=== PATIENT | female | born 1945 | race Caucasian/White ===

== ENCOUNTER 2025-02-23 14:08 | Emergency (ER) | payer OTHER, SELFPAY ==
[2025-02-23] VITALS (8 sets, daily range): BP systolic 137–159; BP diastolic 69–89; BMI 30.3
[2025-02-23 14:30] LABS: Hematocrit 43.0 % (37.0-47.0); Hemoglobin 14.7 g/dL (12.0-16.0); Mean Corp Hgb Conc. 34.2 g/dL (33.0-37.0); Mean Corpuscular Volume 88.5 fL (81.0-99.0); Nucleated Red Blood Cells % 0 %; Platelet Count 250 10^3/uL (130-400); Red Cell Dist. Width 13.2 % (11.5-14.5)
[2025-02-23 15:00] LABS: Albumin 4.3 g/dl (3.5-5.0); Carbon Dioxide 27 mmol/L (22-30)
[2025-02-23 15:17] LABS: ALT (SGPT) 13 U/L (0-35); AST (SGOT) 23 U/L (14-36); Alkaline Phosphatase 59 U/L (38-126); Blood Urea Nitrogen 13 mg/dl (7-17); Calcium 9.2 mg/dl (8.4-10.2); Chloride 102 mmol/L (98-107); Glucose 134 mg/dl (70-99); Potassium 4.4 mmol/L (3.5-5.1); Sodium 135 mmol/L (135-145); Total Protein 7.2 g/dl (6.3-8.2); eGFR > 60.00
--- NOTE | 2025-02-23 16:20 | ED.GENMED ---
History of Present Illness
General
Chief Complaint: Headache
Source: patient
Exam Limitations: none
Time Seen by Provider: 02/23/25 16:04
History of Present Illness
History of Present Illness:
Patient started with a diffuse headache 3 days ago. 2 days ago started with disequilibrium. Started 2 days ago. Disequilibrium worse this morning and better now. Able to ambulate. No other neurologic symptoms.
Past History
Past History
ED Past Medical History: Hypercholesterolemia and Other (osteoporosis)
ED Past Surgical History: Appendectomy and Other (Neck tumor)
Social History
Living: with family
Review of Systems
Review of Systems
All Other Systems: Not applicable
Respiratory: Reports no symptoms
Cardiac: Reports no symptoms
Phy Exam
Physical Exam
Physical Exam:
GENERAL: Alert and oriented in no apparent distress
EYE: Orbits normal. No nystagmus
NECK: Supple, no carotid bruit
ENT: Pharynx without erythema
CARDIAC: Regular rate and rhythm without any obvious murmurs.
LUNGS: Clear breath sounds,normal
ABDOMEN: Soft, without focal tenderness or distention
NEUROLOGICAL: Alert and oriented , cranial nerves II through XII intact. Speech normal. [id number] normal. Cauk-tj-vkle normal. Gait appears well. Slightly hesitant but appears well. Negative Romberg.
SKIN: Warm and dry, no rash or lesion, no discoloration, skin intact.
MUSCULOSKELETAL: No edema,no deformity.Good color
PSYCH: Normal and appropriate interaction.
Course
Orders/Labs/Results
Orders:
Orders
02/23/25 14:16
Electrocardiogram (*1) Urgent
Reason for Study: Vertigo / Dizzy
EKG- Treatment ONCE
02/23/25 14:24
CMP [Comprehensive Metabolic Panel] Urgent
Complete Blood Count/With Diff Urgent
02/23/25 16:17
CT Head W/o Iv Contrast Urgent
Comment:
Reason For Exam: Disequilibrium/headache
MR Brain Without Contrast Urgent
Comment:
Reason For Exam: Disequilibrium/headache
Recent pill cam endoscopy?: No
Meclizine [Antivert] 12.5 mg PO NOW STA
02/23/25 16:54
Alprazolam [Xanax] 0.25 mg PO NOW STA
02/23/25 19:44
Alprazolam [Xanax] 0.25 mg .ROUTE .STK-MED ONE
Abnormal Lab Results
02/23/25
14:24
WBC 13.0 H 10^3/uL
(4.8-10.8)
MPV 11.4 H fL
(7.4-10.4)
Abs Immat Gran (auto) 0.1 H 10^3/uL
(0-0.05)
Absolute Neuts (auto) 9.9 H 10^3/uL
(1.4-6.5)
Neutrophils % 76.0 H %
(42.2-75.2)
Lymphocytes % 19.0 L %
(20.5-51.1)
Glucose 134 H mg/dl
(70-99)
02/23/25 14:24
02/23/25 14:24
Vital Signs
Initial and Last Documented VS:
Initial Vital Signs
Temp Pulse Resp BP Pulse Ox
98.1 F 71 16 154/89 97
02/23/25 14:11 02/23/25 14:11 02/23/25 14:11 02/23/25 14:11 02/23/25 14:11
Last Documented Vital Signs
Temp Pulse Resp BP Pulse Ox
98.2 F 62 20 137/78 97
02/23/25 19:56 02/23/25 21:24 02/23/25 21:24 02/23/25 21:24 02/23/25 21:24
*Radiology
Radiology exam reviewed: radiology read reviewed (Negative head CT. No acute findings on MRI. 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
*Pulse Oximetry
SaO2: 97
Oxygen Mode of Delivery: Room air
Patient hypoxic: no
*EKG
Interpreted by ED Provider?: Yes
Interpretation: abnormal
Comparison EKG: no comparison EKG present
Heart Rate: 62
Rate: normal
Rhythm: sinus and sinus arrhythmia
[place]: normal axis
Interval: normal interval
QRS Pattern: normal QRS
Ischemia: non-specific ST changes
*[employer]amer Interpretation
Rate: normal
Interpretation: normal
Heart Rate: 66
Rhythm: sinus
*Critical Care Note
Total Time (30-74mins, 75-104mins- exclusive of procedures): Not Applicable
Update Note
Update Note:
Patient has remained medically stable and nontoxic. Stable for discharge to follow-up. Will give a trial of meclizine and baby aspirin per day
ED Attending Note
-
Portions of this chart may have been created with voice recognition software.� Occasional wrong word or��sound alike� substitutions may have occurred due to the inherent limitations of voice recognition software.
Discharge Plan
Departure
Patient Disposition: Home (Routine Discharge)
Date of Disposition: 02/23/25
Time of Disposition: 21:29
Patient with high blood pressure during this ER visit?: Yes
Discharge Problem:
Dizziness
Instructions: Dizziness in adults - ED discharge instructions, BLOOD PRESSURE
Prescriptions:
New
meclizine 12.5 mg tablet
12.5 mg PO TID PRN (Reason: dizziness) Qty: 14 0RF
No Action
hydrocodone-acetaminophen [Lortab 5-325] 1 EACH tablet
1 ea PO Q4HPRN PRN (Reason: pain) Qty: 20 0RF
Referrals:
Shore,Barron, DO [Family Provider, Family Practice] - Follow up in 2-3 days
Activity Restrictions/Additional Instructions:
Reasonable to take a baby aspirin per day
Interventions
Interventions:
*Risk Screen - Suicide Last Done: 02/23/25 14:11
*General Assessment Last Done: 02/23/25 16:57
*Neglect/Abuse Screening Last Done: 02/23/25 14:11
*ED- Fall Risk Assessment Last Done: 02/23/25 16:57
*ED COVID-19 Vaccine History Last Done: 02/23/25 16:57
ED- Neurological Assessment Last Done: 02/23/25 19:56
Discharge Date and Time
Print Language: BELARUSIAN
[2025-02-23] MEDS: XANAX 0.25 MG PO (20:05)
[2025-02-23] MEDS: ANTIVERT 12.5 MG PO (21:49)
== END 2025-02-23 22:04 | disposition home or self-care (01) ==
LOC: EMR 14:08
PROVIDERS: Emergency Medicine; EMERGENCY PHYSICIAN Emergency Medicine; FAMILY PHYSICIAN Family Medicine
DX: R51.9 Headache, unspecified (principal); E78.00 Pure hypercholesterolemia, unspecified; M81.0 Age-related osteoporosis without current pathological fracture; Z90.49 Acquired absence of other specified parts of digestive tract
CPT/HCPCS: 99284; 70450; 70551; 80053; 85025; 93005